=== PATIENT | female | born 1975 | race Caucasian/White ===

== ENCOUNTER 2016-09-04 10:30 | Emergency (ER) | payer SELFPAY ==
[~2016-09-04] VITALS: Ht 162.6 cm; Wt 81.8 kg
[2016-09-04 10:41] VITALS: BP 118/68
[2016-09-04] MEDS ORDERED: ACETAMINOPHEN 325 MG TABLET PO ONE (11:15)
== END 2016-09-04 12:48 | disposition home or self-care (01) ==
LOC: EDUNIT# 10:34 → EMS 10:38
DX: S23.3XXA Sprain of ligaments of thoracic spine, initial encounter (principal); M62.838 Other muscle spasm; Z88.6 Allergy status to analgesic agent; V49.9XXA Car occupant (driver) (passenger) injured in unspecified traffic accident, initial encounter; Y93.89 Activity, other specified; Y92.89 Other specified places as the place of occurrence of the external cause; Y99.8 Other external cause status
CPT/HCPCS: 99283